=== PATIENT | male | born 1995 | race Caucasian/White ===

== ENCOUNTER 2019-02-17 19:29 | Emergency (ER) | payer BC ==
--- NOTE | 2019-02-17 20:47 | UC ---
General HPI - HPI Summary HPI Summary: pt states he awakes with nausea every day for about the past 6 months. the past 2 days, he has had some vomiting with it as well. he reports just not feeling well these 2 days. he admits to diarrhea but that has been daily for as long as he can remember with no blood or mucous. he denies abdominal pain. he has no hx of IBD. pt has gone from 190#'s to 127 over the past few years without trying. he does offer he use to swim and lift weights which he no longer does. when asked, pt admits to marijuana use about 4-5 times weekly. - History of Current Complaint Chief Complaint: UCGI Stated Complaint: NAUSEA,ACHY Time Seen by Provider: 02/17/19 20:40 Hx Obtained From: Patient Onset/Duration: Gradual Onset Timing: Constant Pain Intensity: 0 - Allergy/Home Medications Allergies/Adverse Reactions: Allergies Allergy/AdvReac Type Severity Reaction Status Date / Time No Known Allergies Allergy Verified 02/17/19 20:02 PMH/Surg Hx/FS Hx/Imm Hx Previously Healthy: Yes - Surgical History Surgical History: Yes Surgery Procedure, Year, and Place: L knee MCL/ACL repair 2014 - Family History Known Family History: Positive: Diabetes - Social History Occupation: Employed Full-time Alcohol Use: None Substance Use Type: Marijuana Substance Use Comment - Amount & Last Used: occasionally Smoking Status (MU): Light Every Day Tobacco Smoker Amount Used/How Often: 1 juul pod/day Review of Systems All Other Systems Reviewed And Are Negative: Yes Constitutional: Positive: Other - malaise. Negative: Fever, Chills Gastrointestinal: Positive: Vomiting, Diarrhea, Nausea. Negative: Abdominal Pain Genitourinary: Negative: Frequency Physical Exam Triage Information Reviewed: Yes Appearance: Other: - Thin build but not ill appearing. Vital Signs: Initial Vital Signs Temp 98.2 F 02/17/19 19:54 Pulse 69 02/17/19 19:54 Resp 16 02/17/19 19:54 BP 113/74 02/17/19 19:54 Pulse Ox 99 02/17/19 19:54 Vital Signs Reviewed: Yes Eyes: Positive: Conjunctiva Clear ENT: Positive: Pharynx normal, TMs normal. Negative: Nasal congestion, Nasal drainage Neck: Positive: Supple, Nontender, No Lymphadenopathy Respiratory: Positive: Lungs clear, Normal breath sounds, No respiratory distress Cardiovascular: Positive: RRR, No Murmur Abdomen Description: Positive: Nontender, No Organomegaly, Soft Bowel Sounds: Positive: Present Musculoskeletal: Positive: ROM Intact Neurological: Positive: Alert Psychological: Positive: Age Appropriate Behavior Skin Exam: Normal Diagnostics - Laboratory Lab Results: non fasting BS=85. u/a= No blood, leukocytes, nitrites, protein or glucose. Course/Dx - Differential Dx - Multi-Symptom Differential Diagnoses: Other - non toxic. no acute abdomen. BS=unremarkable. will have pt take a 1 week iday to be certain his n/v not partly related to that. the 3 year weight loss and chronic nausea and diarrhea still require additional evaluation. pt advised of need for additional evaluation and that this visit is no substitue for that close f/u. - Diagnoses Provider Diagnosis: Nausea & vomiting Discharge - Sign-Out/Discharge Documenting (check all that apply): Patient Departure All imaging exams completed and their final reports reviewed: No Studies - Discharge Plan Condition: Stable Disposition: HOME Prescriptions: Ondansetron ODT TAB* [Zofran 4 MG Odt TAB*] 4 mg PO Q6H PRN #15 tab.odt PRN Reason: Nausea/Vomiting Patient Education Materials: Acute Nausea and Vomiting (ED), Chronic Diarrhea ( ED) Forms: *Work Release Referrals: Ebenezer Chao MD [Medical Doctor] - As Soon As Possible - Billing Disposition and Condition Condition: STABLE Disposition: Home
[2019-02-17] MEDS ORDERED: Ondansetron ODT TAB* 4 MG PO ONE (20:56)
== END 2019-02-17 21:30 | disposition home or self-care (01) ==
LOC: UCCORT 19:29
DX: R11.2 Nausea with vomiting, unspecified (principal); F17.210 Nicotine dependence, cigarettes, uncomplicated
CPT/HCPCS: 81003; 99202; A9270-GY; G0463